=== PATIENT | male | born 1955 | race Caucasian/White ===

== ENCOUNTER 2022-08-11 08:00 | Outpatient (NON) | payer MEDICARE, SELFPAY | END 2022-08-11 08:01 | disposition home or self-care (01) | LOC: ANHLAB 08-12 07:18 | PROVIDERS: Visit Provider Internal Medicine Gastroenterology | DX: Z86.010 Personal history of colon polyps (principal) | CPT/HCPCS: 88305 ==

== ENCOUNTER 2022-08-11 10:11 | Day surgery (SDC) | payer MEDICARE, SELFPAY ==
[2022-07-31 13:32] VITALS: BMI 28.4
--- NOTE | 2022-08-11 12:24 | WPDANESEPPF ---
Anes - Initial Pre Proc Eval Procedure: Operation Date: 08/11/22 12:30 Proposed Procedures p Screening Colonoscopy - Alexandro Jain MD Date/Time: 08/11/22 12:24 Surgeon: Alexandro Jain MD Pre Op Diagnosis: History of Colon Polyps Patient Data Age: 67 Gender: M Height: 1.83 m Weight: 97.3 kg Allergies Allergy/AdvReac Type Severity Reaction Status Date / Time No Known Allergies Allergy Verified 08/11/22 11:09 Home Medications Medication Instructions Recorded Confirmed Type sodium,potassium,mag sulfates 17.5 See Rx Instructions PO .COMPLEX 07/27/22 08/11/22 Rx gram-3.13 gram-1.6 gram oral soln #354 mL (Suprep Bowel Prep Kit) apixaban 5 mg tablet (Eliquis) 5 mg PO DAILY 07/31/22 08/11/22 History metoprolol tartrate 50 mg tablet 50 mg PO BID 07/31/22 08/11/22 History sildenafil (pulm.hypertension) 20 20 mg PO PRN PRN Erectile 07/31/22 07/31/22 History mg tablet Dysfunction valacyclovir 1 gram tablet 1,000 mg PO PRN PRN Cold Sores 07/31/22 07/31/22 History Patient hx anesthesia problems: none Family hx anesthesia problems: none Results Review: All pre-operative results and documents have been reviewed as part of the pre-operative evaluation. [facility] Past Medical History Medical History (Updated 08/11/22 @ 12:26 by Bimal Galarza MD) Chronic a-fib HTN (hypertension) Hyperlipidemia Social History Social History Smoking status: Former smoker Tobacco type: cigarettes Alcohol intake: current Substance use: never Substance use type: does not use Living arrangements: alone Spiritual care concerns: No Anes - Eval Final PreProcedure Day of Procedure 08/11/22 12:24 Patient weight: overweight Heart: irregular rhythm Lungs: clear to auscultation Airway: Mallampati scale class II Neurological: alert and oriented Last oral intake: >/= 8 hours ASA classification: III Emergent: no Anesthetic plan: proceed Anesthesia type and monitoring: general GIVS and standard monitoring Results Review: All pre-operative results and documents have been reviewed as part of the pre-operative evaluation. Informed Consent: The patient's anesthetic plan and its attendant risks and benefits were discussed with the patient/family/POA. Questions were solicited and answers provided to the satisfaction of the patient/family/POA.
[2022-08-11 12:36] VITALS: BP 104/103; PULSE 72; RESP 16; TEMP 36.4; O2SAT 100
[2022-08-11] MEDS: LACTATED RINGERS 1,000 ML 150 ML IV CONT (12:38)
--- NOTE | 2022-08-11 12:39 | PM.HPGS ---
History of Present Illness History of Present Illness Consent: Risks, benefits, and alternatives have been discussed and questions answered. Patient agrees to proceed with procedure. Chief complaint: History of Colon Polyps Narrative: Raul Chung is a 67 year old male Presents for screening colonoscopy. Patient's current weight appetite bowel movements are normal. Patient denies abdominal pain. He has had no bleeding. Previous colonoscopy 2016 revealed an adenomatous colon polyp that was removed. Patient reports his brother has had colon cancer as well. Patient presents today for screening colonoscopy. Review of Systems Review of Systems: Review of systems noncontributory. [facility] Past Medical History Medical History (Updated 08/11/22 @ 12:40 by Alexandro Jain MD) Chronic a-fib HTN (hypertension) Hyperlipidemia Social History Social History Smoking status: Former smoker Tobacco type: cigarettes Alcohol intake: current Substance use: never Substance use type: does not use Living arrangements: alone Spiritual care concerns: No Meds Home Medications and Allergies Home Medications Medication Instructions Recorded Confirmed Type sodium,potassium,mag sulfates 17.5 See Rx Instructions PO .COMPLEX 07/27/22 08/11/22 Rx gram-3.13 gram-1.6 gram oral soln #354 mL (Suprep Bowel Prep Kit) apixaban 5 mg tablet (Eliquis) 5 mg PO DAILY 07/31/22 08/11/22 History metoprolol tartrate 50 mg tablet 50 mg PO BID 07/31/22 08/11/22 History sildenafil (pulm.hypertension) 20 20 mg PO PRN PRN Erectile 07/31/22 07/31/22 History mg tablet Dysfunction valacyclovir 1 gram tablet 1,000 mg PO PRN PRN Cold Sores 07/31/22 07/31/22 History Allergies Allergy/AdvReac Type Severity Reaction Status Date / Time No Known Allergies Allergy Verified 08/11/22 11:09 Vital Signs Vital Signs - 24 hr 08/11/22 12:36 Temperature 97.6 F Pulse Rate 72 Respiratory Rate 16 Blood Pressure 104/103 H Pulse Oximetry 100 Oxygen Delivery Room Air Exam Narrative: Physical exam reveals patient to be alert. Vital signs stable. HEENT exam is unremarkable. Patient is anicteric. Lungs are clear to auscultation and percussion. Heart is without murmur or extra sounds. Abdomen bowel sounds are present soft nontender with no organomegaly. Digital external rectal exam is normal. Assessment and Plan Assessment and plan (1) History of colon polyps: Code(s): Z86.010 - Personal history of colonic polyps Status: Acute Assessment and Plan: Patient has had a history of adenomatous colon polyps. Most recently 2016. Plan for follow-up colonoscopy at 5 year intervals. (2) Family hx of colon cancer: Code(s): Z80.0 - Family history of malignant neoplasm of digestive organs Status: Acute Assessment and Plan: Patient's family history is significant is brother had colon cancer. Plan for surveillance colonoscopy at 5 year intervals.
[2022-08-11 13:08] VITALS: BP 119/84; PULSE 83; RESP 17; O2SAT 97
[2022-08-11 13:18] VITALS: BP 119/91; PULSE 82; RESP 17; O2SAT 96
--- NOTE | 2022-08-11 13:24 | WPDANESPN ---
Anes - Prog Note Post-Op Date/Time: 08/11/22 13:24 Cardiovascular status: normal Respiratory status: normal Airway patency: baseline Mental status: baseline Post-Op hydration status: normal Vital Signs: Last Vital Signs Temp 36.4 C 08/11/22 12:36 Pulse 83 08/11/22 13:08 Resp 17 08/11/22 13:08 BP 119/84 08/11/22 13:08 Pulse Ox 97 08/11/22 13:08 O2 Del Method Room Air 08/11/22 13:08 Pain Score (VAS): 0/10 I/O: Intake & Output 08/10/22 08/11/22 08/11/22 23:59 07:59 15:59 Intake Total 500 Balance 500 Patient Feedback: Patient satisfied with anesthetic care.
[2022-08-11 13:28] VITALS: BP 135/90; PULSE 75; RESP 18; O2SAT 98
== END 2022-08-11 13:41 | disposition home or self-care (01) ==
PROVIDERS: Visit Provider Internal Medicine Gastroenterology
PROC: 0DJD8ZZ Inspection of Lower Intestinal Tract, Via Natural or Artificial Opening Endoscopic (ICD-10-PCS; CPT 45378; principal; 2022-08-11 12:30)
DX: Z86.010 Personal history of colon polyps (principal)
CPT/HCPCS: 45385